=== PATIENT | male | born 1970 | race Caucasian/White ===

== ENCOUNTER 2018-10-15 07:23 | Emergency (ER) | payer OTHER, SELFPAY ==
[~2018-10-15] VITALS: Ht 165.1 cm; Wt 66.0 kg
[2018-10-15 07:31] VITALS: BP 160/100
[2018-10-15] MEDS ORDERED: SODIUM CHLORIDE 0.9% 1,000 ML IV ONE (08:05)
[2018-10-15 09:15] LABS: BASOPHILS % 1.9 % (0.0-2.0); EOSINOPHILS % 0.1 % (0.0-5.0); HEMATOCRIT. 32.2 % (42.0-52.0); HEMOGLOBIN. 9.6 g/dL (14.0-18.0); LYMPHOCYTES % 16.1 % (20.0-50.0); MEAN CORPUSCULAR HEMOGLOBIN 16.9 pg (28.0-32.0); MEAN CORPUSCULAR VOLUME 56.6 fL (80.0-94.0); MEAN PLATELET VOLUME 8.6 fl (7.4-10.4); MONOCYTES % 6.2 % (2.0-8.0); NEUTROPHILS % 75.7 % (40.0-76.0); PLATELET 244 x1000/uL (130-400); RED CELL DISTRIBUTION WIDTH 20.4 % (11.6-14.6)
[2018-10-15 09:21] LABS: CHLORIDE 104 mEq/L (98-107)
[2018-10-15 09:34] LABS: ETHANOL BLOOD 332 mg/dL
[2018-10-15 09:50] LABS: PLATELET ESTIMATE NORMAL
== END 2018-10-15 08:37 | disposition home or self-care (01) ==
LOC: ER 07:23
DX: F10.229 Alcohol dependence with intoxication, unspecified (principal); Y90.0 Blood alcohol level of less than 20 mg/100 ml; E78.00 Pure hypercholesterolemia, unspecified; I10 Essential (primary) hypertension
CPT/HCPCS: 36415; 80048; 80320; 85025; 99283; J7030; G0480